=== PATIENT | male | born 1990 | race Caucasian/White ===

== ENCOUNTER 2018-05-23 09:24 | Emergency (ER) | payer OTHER ==
[~2018-05-23] VITALS: Ht 188 cm; Wt 92.2 kg
[2018-05-23 09:42] VITALS: BP 141/87; Ht 188 cm; Wt 92.2 kg
== END 2018-05-23 10:01 | disposition home or self-care (01) ==
LOC: ED 09:24
DX: J02.9 Acute pharyngitis, unspecified (principal)

== ENCOUNTER 2018-08-16 09:02 | Emergency (ER) | payer OTHER ==
[~2018-08-16] VITALS: Ht 188 cm; Wt 88.0 kg
[2018-08-16 09:08] VITALS: Ht 188 cm; Wt 88.0 kg
[2018-08-16 10:14] VITALS: BP 144/95
== END 2018-08-16 10:21 | disposition home or self-care (01) ==
LOC: ED 09:02
DX: J36 Peritonsillar abscess (principal); R13.10 Dysphagia, unspecified
CPT/HCPCS: J0696; J1100; J7030

== ENCOUNTER 2018-11-08 21:28 | Emergency (ER) | payer OTHER ==
[~2018-11-08] VITALS: Ht 188 cm; Wt 84.9 kg
[2018-11-08 21:37] VITALS: Ht 188 cm; Wt 84.9 kg
[2018-11-08 22:12] VITALS: BP 127/72
== END 2018-11-08 22:12 | disposition home or self-care (01) ==
LOC: ED 21:28
DX: J06.9 Acute upper respiratory infection, unspecified (principal)

== ENCOUNTER 2019-12-29 10:30 | Emergency (ER) | payer OTHER, SELFPAY ==
[~2019-12-29] VITALS: Ht 188 cm; Wt 95.3 kg
[2019-12-29 10:32] VITALS: BP 145/89; Ht 188 cm; Wt 95.3 kg
== END 2019-12-29 11:31 | disposition home or self-care (01) ==
LOC: ED 10:30
DX: J02.9 Acute pharyngitis, unspecified (principal); Z20.828 Contact with and (suspected) exposure to other viral communicable diseases
CPT/HCPCS: U0003-CS